=== PATIENT | male | born 1975 | race Caucasian/White ===

== ENCOUNTER → 2018-08-28 | Outpatient (CLI) | payer OTHER ==
[~2018-08-28] MED LIST: ACET325 PO; ARIP10; ARIP30 PO; ATOR20 PO; BENZ1; BENZ1 PO; BUSP10 PO; BUSP15 PO; CLOM50A PO; CLON.5 PO; CLON1 PO; CLOT1TC TOP; DIVA250EC; DIVA250EC PO; DIVA500EC PO; FENO48 PO; FIBE4P PO; FISH1000 PO; IBUP600 PO; LORA10ER PO; LOXA10 PO; MULVITMIND PO; NALT50 PO; POLY17UD PO; QUET100 PO; QUET200 PO; RISP1 PO; RISP4 PO; SODCHL1 PO; STOOL SOFTENER; VITAMIN D-32000 UNIT PO
== END | disposition home or self-care (01) ==
LOC: LAB 11:12 → LAB SHORT 11:12
DX: L08.9 Local infection of the skin and subcutaneous tissue, unspecified (principal)
CPT/HCPCS: 87070; 87075; 87077; 87147; 87186; 87205

== ENCOUNTER → 2019-04-24 | Outpatient (CLI) | payer OTHER | END | disposition home or self-care (01) | LOC: LAB SHORT 18:07 → LAB 18:07 | DX: L02.412 Cutaneous abscess of left axilla (principal) | CPT/HCPCS: 87070; 87075; 87077; 87186; 87205 ==

== ENCOUNTER 2019-09-18 08:49 | Emergency (ER) | payer OTHER ==
[~2019-09-18] VITALS: Ht 182.9 cm; Wt 108.9 kg
[2019-09-18] MEDS ORDERED: QUET200 PO ×2 (09:09)
[2019-09-18] MEDS ORDERED: Naltrexone HCl50 MG PO (09:09)
[2019-09-18] MEDS ORDERED: SODCHL1 PO (09:09)
[2019-09-18] MEDS ORDERED: RISP4 PO (09:10)
[2019-09-18] MEDS ORDERED: FENOFIBRATE48 MG PO (09:10)
[2019-09-18] MEDS ORDERED: ATOR20 PO (09:10)
[2019-09-18] MEDS ORDERED: Clomipramine HC50 MG PO (09:11)
[2019-09-18] MEDS ORDERED: ACET500 PO (09:11)
[2019-09-18] MEDS ORDERED: Methocarbamol500 MG PO (09:12)
[2019-09-18] MEDS ORDERED: ALLERCLEAR10 MG PO (09:12)
== END 2019-09-18 10:05 | disposition home or self-care (01) ==
LOC: ER 08:49
DX: R45.1 Restlessness and agitation (principal); G40.909 Epilepsy, unspecified, not intractable, without status epilepticus; Z79.899 Other long term (current) drug therapy
CPT/HCPCS: 99284

== ENCOUNTER → 2021-05-05 | Outpatient (CLI) | payer OTHER ==
[~2021-05-05] MED LIST changes: +ACET500 PO; +ALLERCLEAR10 MG PO; +Clomipramine HC50 MG PO; +FENOFIBRATE48 MG PO; +Methocarbamol500 MG PO; +Naltrexone HCl50 MG PO
[2021-05-05 10:14] LABS: Albumin, Blood 4.1 g/dL (3.4-5.0); Anion Gap 6 mmol/L (6-16); Blood Urea Nitrogen 24 mg/dL (8-24); Bun/Creatinine Ratio 22.2 (12.0-20.0); CO2, Blood 24 mmol/L (21-32); Calcium, Blood 8.5 mg/dL (8.5-10.1); Chloride, Blood 108 mmol/L (98-108); Creatinine, Blood 1.08 mg/dL (0.60-1.20); Glomerular Filtration Rate >60 (60-); Glucose, Blood 110 mg/dL (70-99); Phosphorus, Blood 2.9 mg/dL (2.5-4.9); Potassium, Blood 4.7 mmol/L (3.5-5.5); Sodium, Blood 138 mmol/L (136-145)
[2021-05-06 05:10] LABS: BASOS 1 % (Not Estab.); EOS 2 % (Not Estab.); EOS (ABSOLUTE) 0.1 x10E3/uL (0.0-0.4); HEMATOCRIT 41.8 % (37.5-51.0); HEMOGLOBIN 14.1 g/dL (13.0-17.7); IMMATURE GRANULOCYTES 0 % (Not Estab.); LYMPHS 31 % (Not Estab.); LYMPHS (ABSOLUTE) 1.7 x10E3/uL (0.7-3.1); MCH 30.3 pg (26.6-33.0); MCHC 33.7 g/dL (31.5-35.7); MCV 90 fL (79-97); MONOCYTES 8 % (Not Estab.); MONOCYTES(ABSOLUTE) 0.5 x10E3/uL (0.1-0.9); NEUTROPHILS 58 % (Not Estab.); NEUTROPHILS (ABSOLUTE) 3.2 x10E3/uL (1.4-7.0); PLATELETS 333 x10E3/uL (150-450); RBC 4.66 x10E6/uL (4.14-5.80); RDW 12.9 % (11.6-15.4); WBC 5.5 x10E3/uL (3.4-10.8)
[2021-05-06 06:10] LABS: ALKALINE PHOSPHATASE, S 56 IU/L (44-121); ALT (SGPT) 20 IU/L (0-44); AST (SGOT) 24 IU/L (0-40); BILIRUBIN, TOTAL 0.3 mg/dL (0.0-1.2); BUN 23 mg/dL (6-24); BUN/CREATININE RATIO 23 (9-20); CARBON DIOXIDE, TOTAL 27 mmol/L (20-29); CHLORIDE, SERUM 104 mmol/L (96-106); CREATININE, SERUM 1.01 mg/dL (0.76-1.27); EGFR IF AFRICN AM 103 (>59); EGFR IF NONAFRICN AM 89 (>59); ESTIM. AVG GLU (EAG) 123 mg/dL (.); GLOBULIN, TOTAL 2.3 g/dL (1.5-4.5); GLUCOSE, SERUM 113 mg/dL (65-99); HEMOGLOBIN A1C 5.9 % (4.8-5.6); HIV AB/P24 AG SCREEN Non Reactive (Non Reactive); POTASSIUM, SERUM 4.6 mmol/L (3.5-5.2); PROTEIN, TOTAL, SERUM 6.8 g/dL (6.0-8.5); SODIUM, SERUM 138 mmol/L (134-144)
[2021-05-06 07:10] LABS: CHOLESTEROL, TOTAL 161 mg/dL (100-199); HCV ANTIBODY <0.1 (0.0-0.9); HDL CHOLESTEROL 42 mg/dL (>39); LDL CHOLESTEROL CALC 91 mg/dL (0-99); TRIGLYCERIDES 161 mg/dL (0-149); VLDL CHOLESTEROL CAL 28 mg/dL (5-40)
== END | disposition home or self-care (01) ==
LOC: LAB SHORT 07:30
PROVIDERS: Internal Medicine Nephrology; Nurse Practitioner Family
DX: Z11.4 Encounter for screening for human immunodeficiency virus [HIV] (principal); Z11.59 Encounter for screening for other viral diseases; E78.1 Pure hyperglyceridemia; N18.2 Chronic kidney disease, stage 2 (mild); D63.1 Anemia in chronic kidney disease; R73.01 Impaired fasting glucose
CPT/HCPCS: 80053; 80061; 80069; 83036; 85018; 85025; 86803; 87389

== ENCOUNTER → 2021-11-11 | Outpatient (CLI) | payer OTHER ==
[2021-11-11 10:23] LABS: BASOPHILS ABSOLUTE AUTO 0.04 K/mm3 (0.00-0.23); BASOPHILS PERCENT AUTO 1 % (0-2); EOSINOPHILS ABSOLUTE AUTO 0.12 K/mm3 (0.00-0.68); EOSINOPHILS PERCENT AUTO 3 % (0-6); Hematocrit 40.1 % (37.0-53.0); Hemoglobin 13.5 g/dL (13.5-17.5); IMMATURE GRAN ABSOLUTE AUTO 0.01 K/mm3 (0.00-0.10); IMMATURE GRAN PERCENT AUTO 0 % (0-1); LYMPHOCYTES ABSOLUTE AUTO 1.39 K/mm3 (0.84-5.20); LYMPHOCYTES PERCENT AUTO 30 % (21-46); MONOCYTES ABSOLUTE AUTO 0.36 K/mm3 (0.16-1.47); MONOCYTES PERCENT AUTO 8 % (4-13); Mean Corpuscular HGB 30.4 pg (26.0-34.0); Mean Corpuscular HGB Conc 33.7 g/dL (31.5-36.5); Mean Corpuscular Volume 90 fL (80-100); Mean Platelet Volume 10.4 fL (9.1-12.4); NEUTROPHILS ABSOLUTE AUTO 2.68 K/mm3 (1.96-9.15); NEUTROPHILS PERCENT AUTO 58 % (41-73); Platelet Count 250 K/mm3 (150-400); RDW Coefficient Variation 12.2 % (11.7-14.2); RDW Standard Deviation 40.1 fL (35.1-46.3); Red Blood Cell Count 4.44 M/mm3 (4.30-5.90)
[2021-11-11 10:52] LABS: Alanine Aminotransfer (ALT/SGP 34 U/L (12-78); Albumin, Blood 3.8 g/dL (3.4-5.0); Albumin/Globulin Ratio 1.2 (0.8-1.8); Alk Phos 56 U/L (50-136); Anion Gap 3 mmol/L (6-16); Aspartate Aminotrans (AST/SGOT 22 U/L (12-37); Bilirubin, Total 0.4 mg/dL (0.1-1.0); Blood Urea Nitrogen 25 mg/dL (8-24); Bun/Creatinine Ratio 21.2 (12.0-20.0); CHOL/HDL RATIO 3.4; CO2, Blood 28 mmol/L (21-32); Calcium, Blood 8.5 mg/dL (8.5-10.1); Chloride, Blood 106 mmol/L (98-108); Cholesterol 140 mg/dL (50-200); Creatinine, Blood 1.18 mg/dL (0.60-1.20); Globulin, Blood 3.2 g/dL (2.2-4.0); Glomerular Filtration Rate 77 (60-); Glucose, Blood 115 mg/dL (70-99); HDL Cholesterol 41 mg/dL (>39); LDL/HDL RATIO 1.4; Low Density Lipoprotein Chol 56 mg/dL (0-110); Potassium, Blood 4.1 mmol/L (3.5-5.5); Sodium, Blood 137 mmol/L (136-145); Triglycerides 216 mg/dL (30-160); Very Low Density Lipoprot Chol 43 mg/dL (6-32)
[2021-11-11 11:01] LABS: Anion Gap 4 mmol/L (6-16); Blood Urea Nitrogen 25 mg/dL (8-24); Bun/Creatinine Ratio 22.1 (12.0-20.0); CO2, Blood 27 mmol/L (21-32); Calcium, Blood 8.4 mg/dL (8.5-10.1); Chloride, Blood 105 mmol/L (98-108); Creatinine, Blood 1.13 mg/dL (0.60-1.20); Glomerular Filtration Rate 81 (60-); Glucose, Blood 116 mg/dL (70-99); Magnesium, Blood 2.1 mg/dL (1.6-2.4); Phosphorus, Blood 2.9 mg/dL (2.5-4.9); Sodium, Blood 136 mmol/L (136-145)
== END | disposition home or self-care (01) ==
LOC: LAB 07:30 → LAB SHORT 07:30
PROVIDERS: Internal Medicine Nephrology; Nurse Practitioner Family
DX: E78.1 Pure hyperglyceridemia (principal); N18.2 Chronic kidney disease, stage 2 (mild); D63.1 Anemia in chronic kidney disease; R73.03 Prediabetes
CPT/HCPCS: 80053; 80061; 80069; 83036; 83735; 85018; 85025

== ENCOUNTER → 2024-07-15 | Outpatient (CLI) | payer OTHER | LOC: LAB 10:07 → LAB SHORT 10:07 | DX: L08.9 Local infection of the skin and subcutaneous tissue, unspecified (principal) | CPT/HCPCS: 87070; 87075; 87077; 87147; 87186; 87205 ==